=== PATIENT | female | born 1995 | race Caucasian/White ===

== ENCOUNTER → 2017-12-29 | Outpatient (CLI) | payer OTHER ==
[~2017-12-29] MED LIST: HYDR12.561 PO; METO-233 PO; POTA20TA85 PO
--- NOTE | 2017-12-29 16:16 | RADIOLOGY IMAGING REPORT ---
FACILITY: [facility] PATIENT NAME: Joy Hunt : 1995 MR: [id number] V: [id number] EXAM DATE: ORDERING PHYSICIAN: YOEL BERMEO TECHNOLOGIST: [place] [facility] [place] Patient: Joy Hunt : 1995 Visit/Account:[id number] Date of Sevice: 12/29/2017 CT ABDOMEN WITHOUT CONTRAST CLINICAL INFORMATION: Hypertension TECHNIQUE: Axial CT images were obtained through the abdomen without administration of IV contrast. Reformatted coronal and sagittal images were also obtained. COMPARISON: None available. FINDINGS: Lower lung plata: There is a 4 mm noncalcified subpleural nodule anterior aspect of the right middle lobe best seen on image seven of series 5 Evaluation of the solid organs of the abdomen is limited without IV contrast. Liver: No focal parenchymal abnormality of the liver. Biliary: Gallbladder appears unremarkable as well as the intra and extra hepatic biliary system. Pancreas: Normal appearance. Spleen: Normal appearance. Adrenal glands: Unremarkable. Kidneys / retroperitoneum: There is no demonstration of urolithiasis, hydronephrosis or hydroureter Bowel / peritoneum / mesenteries: The visualized small and large bowel appear unremarkable. Lymph node assessment: There are multiple enlarged retroperitoneal and mesenteric lymph nodes. A rep resentative aortocaval lymph node measures 1.4 x 1.1 x 1.9 cm. A telemarketing representative mesenteric lymph nod e in the right-sided abdomen measures 2.3 x 1 x 1.4 cm Vessels: No significant atherosclerotic calcification seen throughout a nonaneurysmal abdominal aorta and branches. Musculoskeletal / Body wall: There is a small umbilical hernia containing fat IMPRESSION: 1. There are multiple enlarged retroperitoneal and mesenteric lymph nodes as described above. Altho ugh these lymph nodes could be reactive, malignancy such as lymphoma should be excluded 4 mm noncalcified subpleural nodule anterior aspect of the right middle lobe. For nodules less than 6 mm in a low risk patient (minimal or absent smoking history, no history of malignancy), no routine f ollowup is recommended. In a high risk patient (smoking or malignancy history), optional 12 month fol lowup can be obtained. Report Dictated By: Patricia Delgado MD at 12/29/2017 3:53 PM Report E-Signed By: Patricia Delgado MD at 12/29/2017 4:12 PM WSN:[email or web address]
== END ==
LOC: CT 07:41
PROVIDERS: ATTEND Internal Medicine Cardiovascular Disease
DX: R59.0 Localized enlarged lymph nodes (principal); K42.9 Umbilical hernia without obstruction or gangrene; R91.1 Solitary pulmonary nodule
CPT/HCPCS: 74150

== ENCOUNTER → 2018-01-13 | Outpatient (CLI) | payer OTHER ==
[~2018-01-13] MED LIST changes: +IOPAMIDOL 76% 75 ML INFUS BTL 75 ML ONE; +Mirena; +NS 0.9% 20 ML SDV 20 ML ONE
--- NOTE | 2018-01-13 10:10 | RADIOLOGY IMAGING REPORT ---
FACILITY: [facility] [place] PATIENT NAME: Joy Hunt : 1995 MR: [id number] V: [id number] EXAM DATE: ORDERING PHYSICIAN: KATIE GENTILE TECHNOLOGIST: [facility] Patient: Joy Hunt : 1995 Visit/Account:[id number] Date of Sevice: 01/13/2018 CT neck with and without contrast Comparison: None Additional pertinent history: Swollen lymph nodes TECHNIQUE: Multiple axial images were obtained from the mid portion of the brain through the superio r mediastinum with IV contrast. Coronal and sagittal reformatted images were obtained off the axial source data. One of the following dose optimization techniques was utilized in the performance of t his exam: Automated exposure control; adjustment of the mA and/or kV according to the patient's size; or use of an iterative reconstruction technique. Specific details can be referenced in the [facility] y's radiology CT exam operational policy. CONTRAST: 75 mL of Isovue-370 FINDINGS: Visualized portions of the brain parenchyma:Negative Parotid glands/submandibular glands/thyroid: Negative Orbits: Negative Paranasal sinuses: Negative Parapharyngeal spaces: Negative Nasopharynx/oropharynx/hypopharynx: Negative Tonsillar pillars: Negative Oral tongue/tongue base: Negative True and false cords: Negative Lymph node assessment:Negative Surrounding soft tissues: Negative Vasculature: Negative Lung apices: Negative Osseous structures: Negative IMPRESSION: Normal CTA of the neck with and without contrast. Specifically no lymphadenopathy noted . Report Dictated By: Keith Mcguire MD at 01/13/2018 10:01 AM Report E-Signed By: Keith Mcguire MD at 01/13/2018 10:06 AM WSN:[id number]
--- NOTE | 2018-01-13 10:19 | RADIOLOGY IMAGING REPORT ---
FACILITY: [facility] PATIENT NAME: Joy Hunt : 1995 MR: [id number] V: [id number] EXAM DATE: ORDERING PHYSICIAN: KATIE GENTILE TECHNOLOGIST: Location: [facility] [place] Patient: Joy Hunt : 1995 Visit/Account:[id number] Date of Sevice: 01/13/2018 CHEST W W/O CONTRAST HISTORY: Swollen lymph nodes One of the following dose optimization techniques was utilized in the performance of this exam: Autom ated exposure control; adjustment of the mA and/or kV according to the patient's size; or use of an i terative reconstruction technique. Specific details can be referenced in the facility's radiology C T exam operational policy. Additional Pertinent history: none TECHNIQUE: Spiral scan was obtained through the chest before and during injection of nonionic iodin ated intravenous contrast. Contrast: 75 mL of IV Isovue-370. COMPARISON STUDIES: none. FINDINGS: Lungs / pleura: Lung plata are clear. No lung lesions. No effusions. No consolidations Mediastinum / angelina: No hilar mass lesions. Heart / pericardium: negative Vessels: negative Musculoskeletal / Body wall: negative Lymph node assessment: Normal appearing axillary lymph nodes. No mediastinal or hilar lymphadenopathy the pathologic nature. Lower neck: Thyroid glands normal. No abnormal supraclavicular lymphadenopathy Upper abdomen: Gallbladder is normal. Visualized liver, spleen, pancreas adrenal glands and kidneys a re normal. There are a few scattered normal appearing lymph nodes seen in the gastrohepatic ligament and in the celiac axis. There are shotty scattered periaortic pericaval lymph nodes identified larges t measuring approximately centimeter in size. IMPRESSION: 1. Negative CT scan of the chest for acute cardiopulmonary disease. No pathologic lymphadenopathy not ed. Report Dictated By: Mckay Billy MD at 01/13/2018 10:06 AM Report E-Signed By: Mckay Billy MD at 01/13/2018 10:13 AM WSN:[id number]
== END ==
LOC: CT 08:00
PROVIDERS: ATTEND Nurse Practitioner Family
DX: I88.0 Nonspecific mesenteric lymphadenitis (principal); B59 Pneumocystosis
CPT/HCPCS: 70492; 71270; J7050; Q9967

== ENCOUNTER 2018-02-26 09:00 | Outpatient (RCR) | payer OTHER ==
[2018-01-12 08:40] VITALS: BP 124/87
[2018-01-12 09:34] LABS: PLATELET COUNT, AUTOMATED 313 K/uL (150-450)
--- NOTE | 2018-01-12 09:37 | ONC Progress Note - NP.Halsey ---
Patient History Date of Service Jan 12, 2018 Reason For Visit/HPI Patient is a 22-year-old female with a history of hypertension since age 9. Negative workup for secondary causes has been completed. Patient follows with cardiology Dr.Mehdi Christie in [place]. Patient also has a history of endometriosis. She has been on hypertension medication since her teenage years. Patient reports having been seen in urgent care multiple times for lymphadenopathy in the neck at a young age and remembers a biopsy being recommended however symptoms resolved and a biopsy was never completed. Agent is seen today post CT scan of the abdomen completed on 12/29/2017. CT visualized all triple enlarged retroperitoneal and mesenteric lymph nodes. A business services sales representative aortocaval lymph node measures 1.4 x 1.1 x 1.9 cm. A business services sales representative mesenteric lymph node in the right side of the abdomen measures 2.3 x 1 x 1.4. Incidental finding on abdominal CT shows a 4 mm noncalcified subpleural nodule anterior aspect of the right middle lobe. Patient has not had a CT of the chest and neck with IV contrast. Today's discussion reviewed indication of lymphadenopathy. Patient has been at believe that she has a diagnosis of lymphoma. In review patient will have a CT-guided biopsy completed in [place] scheduled for this Friday to give us a confirmed diagnosis. Patient verbalized understanding. She is also scheduled to follow with Dr. Jf Jolly on of this week. In review of systems patient reports that she has had fever only with with an upper respiratory infection thought to be viral last week. She denies any recent symptoms. She has had weight gain and feels very tired and fatigued. She denies any night sweats or chills. No weight loss. She previously was on control but this was discontinued due to a skin reaction and weight gain. She denies any skin reaction today. Surgical history includes tonsil and adenoidectomy in 1999, right anterior cruciate ligament repair age 18, bilateral ear tubes and 96 through 1999, wisdom teeth extraction age 18. Problem List (1) Hypertension secondary to endocrine disorders (2) Endometriosis (3) Mesenteric lymphadenitis (4) Retroperitoneal lymphadenopathy (5) FH: diabetes mellitus (6) FH: kidney disease (7) FH: alcoholism (8) FH: glaucoma (9) FH: skin cancer (10) FH: dementia (11) FH: sleep apnea (12) FH: HTN (hypertension) (13) Family history of degenerative disc disease (14) Family history of endometriosis (15) Family history of GERD Medical History Family History: Degenerative disc disease MOTHER, Age:49 Endometriosis MOTHER, Age:49 FH: HTN (hypertension) MOTHER, Age:49 MATERNAL GRANDFATHER, , Age:78 FH: alcoholism Paternal Grandfather FH: dementia Maternal Grandmother FH: diabetes mellitus PATERNAL GRANDMOTHER, FH: glaucoma PATERNAL GRANDMOTHER, FH: kidney disease MOTHER, Age:49 FH: skin cancer MOTHER, Age:49 MATERNAL GRANDFATHER, , Age:78 FH: sleep apnea FATHER, Age:49 GERD MOTHER, Age:49 Psychosocial History Social History Patient is single, she is a college student studying in nutrition at the [employer] Occupational History Patient works in [employer] Alcohol History She denies abuse Recreational Drug History She denies use Smoking Status: Never Smoker Exposure to Second Hand Smoke?: Yes (g[place] in [place]Public exposure) Medications and Allergies Active Scripts Metoprolol Succinate (TOPROL XL) 50 Mg Tab.er.24h, 1 TAB PO QDAY, #90 TAB 4 Refills Prov:RAHEEL DANIELS MD 09/01/17 Hydrochlorothiazide (HYDROCHLOROTHIAZIDE) 12.5 Mg Tablet, 1 TAB PO QDAY, #90 TAB 4 Refills Prov:RAHEEL DANIELS MD 09/01/17 Reported Medications Potassium Chloride (KLOR-CON M20) 20 Meq Tab.er.prt, 20 MEQ PO PRN Y for CRAMPING 01/12/18 [Mirena] No Conflict Check, 52 MG DIRECTED 01/12/18 Discontinued Scripts Potassium Chloride (KLOR-CON M20) 20 Meq Tab.er.prt, 2 TAB PO QDAY, #180 TAB 4 Refills Prov:RAHEEL DANIELS MD 09/01/17 Allergies: Coded Allergies: No Known Drug Allergies (Unverified , 08/14/17) Review of System/Physical Exam Review of Systems All Systems Reviewed/Normal: Yes, Except as Noted Constitutional: Positive for Appetite/Weight Change (weight gain), Positive for Recent Infection, Denies Fever/Chills/Sweating Gastrointestinal: Diarrhea (reports bouts of diarrhea that coming go. No correlation with foods) Endocrine: Positive for Enlarged Lymph Nodes (prior history of bilateral neck lymphadenopathy. Denies any palpable lymph nodes today.) Hematologic: Positive for Fatigue (increased fatigue rated a 4 out of 10 today) Musculoskeletal: Positive for Other (patient is active walking several miles a day on campus.) Physical Exam Vital Signs Temperature: 97.2 Pulse: 83 BP Systolic: 124 BP Diastolic: 87 Respiratory Rate: 16 O2 SAT: 95 O2 Delivery: Height (inches) 64.50 Weight lb: Weight oz: Weight Kg (Erick): Pain: 0 ECOG Score: 0 General: Stable, Well Developed, Well Nourished, Not In Acute Distress HEENT: No Trauma, No Conjunctivitis, No Icterus, No Mucositis, No Oral Thrush Neck: Supple, No Thyromegaly Lungs: Clear to Auscultation Heart: Regular Rate, Regular Rhythm, No Gallops, No Murmurs Abdomen: Soft and Nontender, No Hepatosplenomegaly, No Masses, Tenderness ( mild tenderness with palpation on the right upper quadrant, no rebound tenderness) Extremities: No Cyanosis, No Clubbing, No Edema Lymphadenopathy: No Cervical, No Subclavicular, Axillary (tenderness with palpation in the right axillary with possible palpable lymph node in the upper deep quadrant), No Femoral Psychiatric: Mood appears normal, Affect appears normal Skin: No Skin Rashes, No Bruising, No Purpura Diagnostic Studies Diagnostic Studies Laboratory CBC, CMP, LDH and uric acid drawn today. Patient will have PTT and PT INR drawn in [place] prior CT guided biopsy. Assessment and Plan Assessment & Plan This is a 22-year-old female with a history of hypertension since 9 years old. She started on medication in her mid teens. Patient reports that she has had increased fatigue and weight gain. Cardiology ordered a CT of the abdomen for abnormal aldosterone and PRA levels. CT completed on 12/29/2017 shows multiple enlarged retroperitoneal and mesenteric lymph nodes. A business services sales representative aortocaval lymph node measures 1.4 x 1.1 x 1.9 cm. A business services sales representative mesenteric lymph node in the right side of the abdomen measures 2.3 x 1 x 1.4 cm. Incidental finding is a 4 mm noncalcified subpleural nodule anterior aspect of the right middle lobe. Patient has mild tenderness with deep palpation in the right upper abdomen and right axillary area. Possible palpable lymph node on exam today noted in right axillary is very deep. CT of the chest and neck will be completed prior follow-up with Dr. JOSEPH Jolly on of this week. Patient is currently scheduled for CT-guided biopsy in [place] for mesenteric lymph node. CBC, CMP, LDH and uric acid will be drawn today. Patient will need PT and PT/INR completed in [place] prior to CT biopsy scheduled for this Friday. In addition patient has requested a 2nd opinion and will follow with Dr. Roy on 01/21/2017. I personally spent a total of 35 minutes. Of that 35 minutes was counseling/ coordination of patient's care. See my note above for details. Copies to: YOEL BERMEO MD, NANCY J TIN CAN LABORER-BC, ONC Jan 12, 2018 09:36
[2018-01-15 08:37] VITALS: BP 135/86
--- NOTE | 2018-01-15 18:03 | ONCOLOGY FOLLOW UP NOTE ---
EVENT DATE: January 15, 2018 DIAGNOSES 1. Mesenteric and retroperitoneal lymphadenopathy. 2. Childhood hypertension. 3. Endometriosis. CHIEF COMPLAINT Patient is here today for followup of her mesenteric and retroperitoneal lymphadenopathy. ONCOLOGY/HEMATOLOGY HISTORY Patient is a 22-year-old female who was diagnosed with hypertension since age 9. Her workup was negative for secondary causes. Patient is followed by a driver medic in [place], [place]. She had also a history of endometriosis. She had a CT abdomen on December 29, 2017 which showed enlarged retroperitoneal and mesenteric lymph nodes. Aortocaval lymph node measures 1.9 cm. Another lymph node on the right side of the abdomen measured 2.3 cm. There was an incidental finding in the abdominal CT scan of 4 mm noncalcified subpleural nodule on the anterior aspect of the right middle lobe. CT chest and neck did not show any lymphadenopathy. Patient is scheduled for a CT-guided biopsy of the retroperitoneal lymph node on January 16, 2018. Patient denies any B symptoms, except for mild loss of appetite. PAST MEDICAL HISTORY 1. Childhood hypertension. 2. Endometriosis. PAST SURGICAL HISTORY 1. Right anterior cruciate ligament repair at age 18. 2. Tonsillectomy and adenoidectomy in 1999. 3. Bilateral ear tubes four times between [id number]. 4. [place] tooth extraction at the age 18. FAMILY HISTORY Mother had melanoma and basal cell carcinoma. Paternal great grandmother had head and neck cancer. Maternal grandfather had also melanoma. SOCIAL HISTORY Patient is single. She works at [employer] in [place] in the [employer] section. She is currently a full student. Denies any abuse of tobacco, alcohol or drugs, but she drinks occasionally. CURRENT MEDICATIONS 1. Hydrochlorothiazide 12.5 mg tablets daily. 2. Metoprolol 50 mg once daily. 3. Potassium chloride 20 mEq as needed. ALLERGIES No known drug allergies. REVIEW OF SYSTEMS CONSTITUTIONAL: She has loss of appetite. No fever, chills or sweating. No recent infection. HEENT: Ears: No tinnitus or hearing problem. Nose: No nasal discharge or epistaxis. Throat: No sore throat or mouth ulcers. Eyes: No diplopia or visual changes. RESPIRATORY: No shortness of breath. She has cough with expectoration from recovering from upper respiratory tract infection. CARDIOVASCULAR: No chest pain, orthopnea, or paroxysmal nocturnal dyspnea (PND) . No edema. No palpitations. GASTROINTESTINAL: No nausea or vomiting. She has occasional diarrhea. No change in bowel movements. No heartburn or swallowing difficulties. No abdominal pain. No jaundice. No hematemesis, melena or rectal bleeding. GENITOURINARY: No hematuria or dysuria. MUSCULOSKELETAL: She has pain in the lower back for the last for the last two months. NEUROLOGICAL: No tingling or numbness in the hands or feet. No headaches or convulsions. HEMATOLOGIC/LYMPHATIC: No bleeding or easy bruising. She is weak, tired and fatigued. PHYSICAL EXAMINATION GENERAL: Looks stable. Well-developed, well-nourished, and in no acute distress. VITAL SIGNS: Blood pressure 135/86, pulse 94 per minute, respirations 16 per minute, temperature 97.4, pulse ox 95% on room air. HEENT: Head: Atraumatic. No sinus tenderness to palpation. Eyes: No icterus or conjunctivitis. Mouth and throat: No oral thrush or mucositis. NECK: Supple. No cervical or supraclavicular lymphadenopathy. LUNGS: Clear to auscultation and percussion bilaterally. HEART: Regular rate and rhythm. No gallops, murmurs, clicks or rubs. ABDOMEN: Soft and lax. No tenderness. No hepatosplenomegaly. No masses. EXTREMITIES: No cyanosis, clubbing or edema. LYMPHATICS: No peripheral lymphadenopathy. NEUROLOGICAL: Conscious, alert and oriented times three. No focal motor or sensory deficits. PSYCHIATRIC: Mood and affect appear normal. SKIN: No skin rash, bruise or purpuric eruption. ASSESSMENT 1. Retroperitoneal and mesenteric lymphadenopathy. Could be benign in nature versus malignancy, especially lymphomas in her age group. Her CT chest and neck did not show any lymphadenopathy, but her CT abdomen and pelvis revealed retroperitoneal and mesenteric lymphadenopathy. Patient is scheduled on January 16, [address]-guided biopsy of the retroperitoneal lymph node. I will await the result of this lymph node. I had a long discussion with the patient and her family today regarding the possibility of sampling error and the possibility of needing full excisional biopsy if this is a lymphoma to make all the testing we need to decide about treatment. They are aware also, if this is a lymphoma the patient will need bone marrow aspiration biopsy to complete the staging workup. I am planning to see her next week after she will have her biopsy to discuss the results and further management. 2. Childhood hypertension, on treatment. 3. History of endometriosis. PLAN 1. Await the result of the CT-guided biopsy of the retroperitoneal lymph node. 2. Patient to return in one week for further evaluation and management. 3. Patient is to contact us for any new concern or complaints. BONYD
[2018-02-23 09:09] VITALS: BP 147/89
--- NOTE | 2018-02-23 14:25 | RADIOLOGY IMAGING REPORT ---
FAC[place]: [facility] [place]IENT NAME: Joy Hunt : 1995 MR: [id number] V: [id number] EXAM DATE: ORDERING PHYSICIAN: KATIE GENTILE TECHNOLOGIST: Location: [facility] Patient: Joy Hunt : 1995 Visit/Account:[id number] Date of Sevice: 02/23/2018 CT ABDOMEN PELVIS W & W/O CONTRAST HISTORY: Follow-up enlarged lymph nodes TECHNIQUE: Axial images acquired through the abdomen/pelvis both with and without IV contrast.. Carley nal and sagittal reformatting also performed. Dose Lowering Technique One of the following dose optimization techniques was utilized in the performance of this exam: Autom ated exposure control; adjustment of the mA and/or kV according to the patient's size; or use of an i terative reconstruction technique. Specific details can be referenced in the facility's radiology C T exam operational policy. CONTRAST: 75 mL Isovue-370 COMPARISON: December 29, 2017 FINDINGS: Visualized lung bases: Negative. Hepatobiliary: Negative. Spleen: Negative. Adrenals: Negative. Pancreas: Negative. Kidneys ureters and bladder: Negative. Genitalia: The uterus is canted towards the right. There is an IUD in place. The lateral arms of t he IUD may be embedded within the myometrium or possibly extending through the myometrium. This coul d be better evaluated sonographically GI: Negative. Vessels/spaces/nodes: There has been no significant interval change in the prominent portacaval and mesenteric adenopathy Bones/soft tissues: Small umbilical hernia containing fat Additional findings: None pertinent. IMPRESSION: There is been no stable interval change in the prominent retroperitoneal and aortocaval adenopathy. Although this lymph nodes may be reactive although possibility of lymphoma or other lymphoproliferati ve process are included in the differential diagnosis The uterus is canted towards the right. There is an IUD in place with the lateral arms of IUD possib ly embedded within the myometrium or extending through the myometrium. Further evaluation with ultra sound is recommended Report Dictated By: Patricia Delgado MD at 02/23/2018 2:00 PM Report E-Signed By: Patricia Delgado MD at 02/23/2018 2:21 PM WSN:[email or web address]
[~2018-02-26] VITALS: Ht 163.8 cm; Wt 96.9 kg
[~2018-02-26 09:00] MED LIST changes: -NS 0.9% 20 ML SDV 20 ML ONE
[2018-02-26 09:08] VITALS: BP 150/94
[2018-02-26] MEDS ORDERED: OMEP-125 PO (09:11)
--- NOTE | 2018-02-26 16:33 | ONCOLOGY FOLLOW UP NOTE ---
EVENT DATE: February 26, 2018 DIAGNOSES 1. Mesenteric and retroperitoneal lymphadenopathy. 2. Childhood hypertension. 3. Endometriosis. CHIEF COMPLAINT Patient is here today for followup of her mesenteric and retroperitoneal lymphadenopathy. ONCOLOGY/HEMATOLOGY HISTORY Patient is a 22-year-old female who was diagnosed with hypertension since age 9. Her workup was negative for secondary causes. Patient is followed by a towel inspector in [place], [place]. She had also a history of endometriosis. She had a CT abdomen on December 29, 2017 which showed enlarged retroperitoneal and mesenteric lymph nodes. Aortocaval lymph node measures 1.9 cm. Another lymph node on the right side of the abdomen measured 2.3 cm. There was an incidental finding in the abdominal CT scan of 4 mm noncalcified subpleural nodule on the anterior aspect of the right middle lobe. CT chest and neck did not show any lymphadenopathy. Patient is scheduled for a CT-guided biopsy of the retroperitoneal lymph node on January 16, 2018. Patient denies any B symptoms, except for mild loss of appetite. HISTORY OF PRESENT ILLNESS Patient is here today for followup of her mesenteric and retroperitoneal lymphadenopathy. She is complaining of occasional diarrhea due to stress. She has also some discomfort in her back. She felt that she has some right postauricular lymph node which is tender sometimes. She is weak, tired and fatigued. PAST MEDICAL HISTORY 1. Childhood hypertension. 2. Endometriosis. PAST SURGICAL HISTORY 1. Right anterior cruciate ligament repair at age 18. 2. Tonsillectomy and adenoidectomy in 1999. 3. Bilateral ear tubes four times between [id number]. 4. [place] tooth extraction at the age 18. FAMILY HISTORY Mother had melanoma and basal cell carcinoma. Paternal great grandmother had head and neck cancer. Maternal grandfather had also melanoma. SOCIAL HISTORY Patient is single. She works at [employer] in [place] in the [employer] section. She is currently a full student. Denies any abuse of tobacco, alcohol or drugs, but she drinks occasionally. CURRENT MEDICATIONS 1. Hydrochlorothiazide 12.5 mg tablets daily. 2. Metoprolol 50 mg once daily. 3. Potassium chloride 20 mEq as needed. ALLERGIES No known drug allergies. REVIEW OF SYSTEMS CONSTITUTIONAL: She has loss of appetite. No fever, chills or sweating. No recent infection. HEENT: Ears: No tinnitus or hearing problem. Nose: No nasal discharge or epistaxis. Throat: No sore throat or mouth ulcers. Eyes: No diplopia or visual changes. RESPIRATORY: No shortness of breath. She has cough with expectoration from recovering from upper respiratory tract infection. CARDIOVASCULAR: No chest pain, orthopnea, or paroxysmal nocturnal dyspnea (PND) . No edema. No palpitations. GASTROINTESTINAL: No nausea or vomiting. She has occasional diarrhea. No change in bowel movements. No heartburn or swallowing difficulties. No abdominal pain. No jaundice. No hematemesis, melena or rectal bleeding. GENITOURINARY: No hematuria or dysuria. MUSCULOSKELETAL: She has discomfort in her back. NEUROLOGICAL: No tingling or numbness in the hands or feet. No headaches or convulsions. No complaint. HEMATOLOGIC/LYMPHATIC: No bleeding or easy bruising. She is weak, tired and fatigued. She has possibly enlarged right postauricular lymph node. PHYSICAL EXAMINATION GENERAL: Looks stable. Well-developed, well-nourished, and in no acute distress. VITAL SIGNS: Blood pressure 150/94, pulse 113 per minute, respirations 16 per minute, temperature 97.6, pulse ox 94% on room air. HEENT: Head: Atraumatic. No sinus tenderness to palpation. Eyes: No icterus or conjunctivitis. Mouth and throat: No oral thrush or mucositis. NECK: Supple. No cervical or supraclavicular lymphadenopathy. There may be possible right postauricular lymph node, slightly tender to palpation, but the size is not significant. LUNGS: Clear to auscultation and percussion bilaterally. HEART: Regular rate and rhythm. No gallops, murmurs, clicks or rubs. ABDOMEN: Soft and lax. No tenderness. No hepatosplenomegaly. No masses. EXTREMITIES: No cyanosis, clubbing or edema. LYMPHATICS: No peripheral lymphadenopathy. NEUROLOGICAL: Conscious, alert and oriented times three. No focal motor or sensory deficits. PSYCHIATRIC: Mood and affect appear normal. SKIN: No skin rash, bruise or purpuric eruption. DIAGNOSTIC DATA CBC shows white count 9.1, hemoglobin 16.2, hematocrit 46.8, platelets 313,000. Chem panel is totally normal. CT abdomen and pelvis done on February 23, 2018 revealed stable prominent retroperitoneal and aortocaval adenopathy. The patient was referred for CT guided biopsy of one of the retroperitoneal lymph nodes, but the radiologist at [facility] does not think they are significant pathologically to do the biopsy. ASSESSMENT 1. Retroperitoneal and mesenteric lymphadenopathy. Could be reactive in nature. Patient was referred for CT guided biopsy of one of those lymph nodes, but the radiologist at [facility] thought those are not significant clinically to do the biopsy. Her repeat CT abdomen and pelvis did not show any change in the size of those lymph nodes. There may be query right postauricular lymph node tender to palpation. I am planning to continue followup. I will see her in four months with CBC, chem panel and repeat CT abdomen and pelvis. I advised the patient also to check the superficial lymphadenopathy in the neck, under the armpits and in the groin area, and if the patient will feel any swelling, to contact the office and we will see her at that time and decide about biopsy. So far it seems that she may have a benign cause for those slightly enlarged lymph nodes. 2. Hypertension on treatment. 3. History of endometriosis. PLAN 1. Continue followup. 2. Patient to return in four months with CBC, chem panel and CT abdomen and pelvis with IV and oral contrast. 3. Patient is to contact us for any new concerns or complaints. ALDAIR
== END 2018-03-20 08:44 | disposition home or self-care (01) ==
LOC: ONC 09:00
PROVIDERS: ATTEND Nurse Practitioner Family
DX: R59.0 Localized enlarged lymph nodes (principal); R91.8 Other nonspecific abnormal finding of lung field; R19.7 Diarrhea, unspecified; R53.83 Other fatigue; I10 Essential (primary) hypertension; Z97.5 Presence of (intrauterine) contraceptive device
CPT/HCPCS: 36415; 74177; 82565; 83615; 84550; 85025; 99212; Q9967; 82040; 82247; 82310; 82374; 82435; 82947; 84075; 84132; 84155; 84295; 84450; 84460; 84520

== ENCOUNTER → 2018-03-04 | Outpatient (CLI) | payer OTHER ==
[~2018-03-04] MED LIST changes: -IOPAMIDOL 76% 75 ML INFUS BTL 75 ML ONE; +OMEP-125 PO
--- NOTE | 2018-03-04 17:12 | RADIOLOGY IMAGING REPORT ---
FACILITY: [facility] PATIENT NAME: Joy Hunt : 1995 MR: [id number] V: [id number] EXAM DATE: ORDERING PHYSICIAN: RAHEEL DANIELS TECHNOLOGIST: Location: [facility] [place] Patient: Joy Hunt : 1995 Visit/Account:[id number] Date of Sevice: 03/04/2018 EXAMINATION: Ultrasound pelvis transabdominal and transvaginal with Doppler evaluation. HISTORY: Abdominal pain, pelvic pain for one month. LMP not recorded. COMPARISON: CT abdomen and pelvis from 02/23/2018. FINDINGS: Transabdominal: Uterus: Negative. Ovaries: Not visualized transabdominally. Urinary bladder: Negative. Transvaginal: Uterus: Slightly retroverted; 5.2 cm length x 3.3 cm transverse x 2.4 cm AP. Myometrium: Negative. Endometrium: 5 mm in greatest double thickness. Homogeneous without focal lesion. Well-positioned I UD. Cervix: Negative. Ovaries: Right ovary 2.6 x 1.7 x 2.2 cm, left ovary 2.5 x 1.3 x 2.2 cm. Blood flow is documented in each ovary by Doppler ultrasound. Normal Doppler arterial and venous wav eforms to both ovaries. Adnexa: Negative. Free pelvic fluid: None. IMPRESSION: 1. Well-positioned IUD. 2. Normal pelvic ultrasound. Report Dictated By: Jessica Acosta MD at 03/04/2018 5:06 PM Report E-Signed By: Jessica Acosta MD at 03/04/2018 5:09 PM WSN:[id number]
== END ==
LOC: US 01:06
PROVIDERS: ATTEND Internal Medicine
DX: Z97.5 Presence of (intrauterine) contraceptive device (principal)
CPT/HCPCS: 76856

== ENCOUNTER → 2018-05-06 | Outpatient (CLI) | payer OTHER ==
[~2018-05-06] MED LIST changes: +IOPAMIDOL 76% 75 ML INFUS BTL 0 ML ONE
--- NOTE | 2018-05-06 14:31 | RADIOLOGY IMAGING REPORT ---
FACILITY: [facility] PATIENT NAME: Joy Hunt : 1995 MR: [id number] V: [id number] EXAM DATE: ORDERING PHYSICIAN: GENO OLIVAREZ TECHNOLOGIST: Location: [place] [facility] [place] Patient: Joy Hunt : 1995 Visit/Account:[id number] Date of Sevice: 05/06/2018 EXAMINATION: CT neck without IV contrast HISTORY: Evaluate for malignancy TECHNIQUE: CT was obtained through the neck without contrast. Sagittal and coronal reformatted im ages were generated. One of the following dose optimization techniques was utilized in the performance of this exam: autom ated exposure control; adjustment of the mA and/or kV according to patient size; or use of iterative reconstruction technique. Specific details can be referenced in the facility's radiology CT exam ope rational policy. COMPARISON: January 13, 2018 FINDINGS: Parotid/submandibular and thyroid glands: Normal. Pharyngeal and retropharyngeal soft tissues: Normal. Oral cavity and umbrella repairer space soft tissues: Normal. Laryngeal soft tissues: Normal. Lymph nodes: No enlarged or abnormal appearing neck lymph nodes. Vessels: Negative. Visualized orbits / brain: Negative. Upper chest: Normal. Bones/sinuses/mastoid air cells: Normal. IMPRESSION: Normal neck CT. No neck mass or adenopathy. Report Dictated By: Asad Iniguez MD at 05/06/2018 2:23 PM Report E-Signed By: Asad Iniguez MD at 05/06/2018 2:27 PM WSN:[email or web address]
--- NOTE | 2018-05-06 14:32 | RADIOLOGY IMAGING REPORT ---
FACILITY: [facility] PATIENT NAME: oJy Hunt : 1995 MR: [id number] V: [id number] EXAM DATE: ORDERING PHYSICIAN: GENO OLIVAREZ TECHNOLOGIST: Location: [facility] [place] Patient: Joy Hunt : 1995 Visit/Account:[id number] Date of Sevice: 05/06/2018 CHEST/AB/PELV W/O CONTRAST COMPARISON: February 23, 2018 CT abdomen and pelvis with and without contrast: Noncontrast abdomen CT Fe bru2017, CT chest with and without contrast January 13, 2018 HISTORY: Enlarged lymph nodes and nonspecific lymphadenitis.. TECHNIQUE: Axial CT of the chest, abdomen and pelvis without intravenous contrast. Coronal and sagi ttal reformats. One of the following dose optimization techniques was utilized in the performance of this exam: automated exposure control; adjustment of the mA and/or kV according to patient size; or use of iterative reconstruction technique. Specific details can be referenced in the facility's [facility] CT exam operational policy. CONTRAST: None CT CHEST FINDINGS: CARDIAC: Unremarkable. MEDIASTINUM/ANGELINA: Upper normal size residual thymus in the anterior mediastinum. Nonenlarged lymph n odes. No hilar adenopathy with assessment limited by noncontrast technique. VASCULATURE: Unremarkable. CHEST WALL: No significantly enlarged lymph nodes. Prominent axillary nodes bilaterally with benign morphologies including fatty replaced angelina. LUNGS/PLEURA: No masses or pleural effusion. There are a few scattered pulmonary nodules which are p robably incidental/benign and these are stable from December. There is a 2 mm right upper lobe nodule image 132, pleural-based right middle lobe nodule anteriorly measuring 3 mm image 166, 3 mm pleural- based right lung base nodule image 221, 2-3 mm pleural-based nodules posteriorly in the left upper lo be largest on image 63, and other small nodules. BONES: Unremarkable. No significant lesion or fracture. CT ABDOMEN AND PELVIS FINDINGS: LIVER: Unremarkable. BILIARY: Unremarkable gallbladder. No intra-or extrahepatic bile duct dilatat ion. SPLEEN: Unremarkable. Normal size. Homogeneous density. PANCREAS: Unremarkable. No appreciable mass. No evidence of acute pancreatitis. ADRENALS: Unremarkable. KIDNEYS: Unremarkable. No hydronephrosis or appreciable calculus. No significant masses. GI/MESENTERY: Unremarkable. No visible mass, obstruction, or bowel wall thickening. No free fluid. VASCULAR: Unremarkable. LYMPH NODES: Prominent, just under 1 cm short axis diameter aortocaval and retroperitoneal lymph nod es in the abdomen, stable from December. No new adenopathy. There is no pelvic adenopathy. BLADDER: Unremarkable. No visible focal wall thickening, appreciable lesion, or calculus. PELVIC ORGANS: Uterine IUD. Unremarkable right ovary. Left ovary is slightly larger than previous bu t still upper normal size at about 2.4 cm, probably due to a cyst or follicle. BONES: Unremarkable.No acute-appearing fracture or suspicious osseous lesion. OTHER: Negative. IMPRESSION: 1. Scattered pulmonary micronodules, probably benign, and typically not requiring follow-up in a pat ient of this age, stable from December 2017. 2. Prominent retroperitoneal lymph nodes in the abdomen are stable from December. No new adenopathy in the chest, abdomen or pelvis. Report Dictated By: Oneil Fan at 05/06/2018 1:59 PM Report E-Signed By: Oneil Fan at 05/06/2018 2:28 PM WSN:[id number]
== END ==
LOC: CT 01:38
PROVIDERS: ATTEND Internal Medicine Hematology
DX: R91.8 Other nonspecific abnormal finding of lung field (principal); R59.0 Localized enlarged lymph nodes; Z97.5 Presence of (intrauterine) contraceptive device
CPT/HCPCS: 70490; 71250; 71260; 74176; 74177; Q9967

== ENCOUNTER 2018-07-02 14:55 | Outpatient (RCR) | payer OTHER ==
[2018-06-30 16:10] LABS: PLATELET COUNT, AUTOMATED 252 K/uL (150-450)
[2018-06-30 16:33] VITALS: BP 145/90
[~2018-07-02 14:55] MED LIST changes: -IOPAMIDOL 76% 75 ML INFUS BTL 0 ML ONE
[2018-07-02 15:04] VITALS: BP 125/87
--- NOTE | 2018-07-02 16:46 | ONCOLOGY FOLLOW UP NOTE ---
EVENT DATE: July 02, 2018 DIAGNOSES 1. Mesenteric and retroperitoneal lymphadenopathy. 2. Childhood hypertension. 3. Endometriosis. CHIEF COMPLAINT Patient is here today for followup of her mesenteric and retroperitoneal lymphadenopathy. ONCOLOGY/HEMATOLOGY HISTORY Patient is a 23-year-old female who was diagnosed with hypertension since age 9. Her workup was negative for secondary causes. Patient is followed by a acid plant helper in [place], [place]. She had also a history of endometriosis. She had a CT abdomen on December 29, 2017 which showed enlarged retroperitoneal and mesenteric lymph nodes. Aortocaval lymph node measures 1.9 cm. Another lymph node on the right side of the abdomen measured 2.3 cm. There was an incidental finding in the abdominal CT scan of 4 mm noncalcified subpleural nodule on the anterior aspect of the right middle lobe. CT chest and neck did not show any lymphadenopathy. Patient is scheduled for a CT-guided biopsy of the retroperitoneal lymph node on January 16, 2018. Patient denies any B symptoms, except for mild loss of appetite. HISTORY OF PRESENT ILLNESS Patient is here today for followup of her mesenteric and retroperitoneal lymphadenopathy. She is complaining of left-sided stabbing pain in the chest and she has some lymph nodes in the left jugulodigastric area. PAST MEDICAL HISTORY 1. Childhood hypertension. 2. Endometriosis. PAST SURGICAL HISTORY 1. Right anterior cruciate ligament repair at age 18. 2. Tonsillectomy and adenoidectomy in 1999. 3. Bilateral ear tubes four times between [id number]. 4. [place] tooth extraction at the age 18. FAMILY HISTORY Mother had melanoma and basal cell carcinoma. Paternal great grandmother had head and neck cancer. Maternal grandfather had also melanoma. SOCIAL HISTORY Patient is single. She works at [employer] in the [employer] section. She is currently a full student. Denies any abuse of tobacco, alcohol or drugs, but she drinks occasionally. CURRENT MEDICATIONS 1. Hydrochlorothiazide 12.5 mg tablets daily. 2. Metoprolol 50 mg once daily. 3. Potassium chloride 20 mEq as needed. ALLERGIES No known drug allergies. REVIEW OF SYSTEMS CONSTITUTIONAL: She has loss of appetite. No fever, chills or sweating. No recent infection. HEENT: Ears: No tinnitus or hearing problem. Nose: No nasal discharge or epistaxis. Throat: No sore throat or mouth ulcers. Eyes: No diplopia or visual changes. RESPIRATORY: No shortness of breath. She has cough with expectoration from recovering from upper respiratory tract infection. CARDIOVASCULAR: She has stabbing pain in the left side of the chest laterally. No orthopnea, or paroxysmal nocturnal dyspnea (PND). No edema. No palpitations. GASTROINTESTINAL: No nausea or vomiting. She has occasional diarrhea. No change in bowel movements. No heartburn or swallowing difficulties. No abdominal pain. No jaundice. No hematemesis, melena or rectal bleeding. GENITOURINARY: No hematuria or dysuria. MUSCULOSKELETAL: She has discomfort in her back. NEUROLOGICAL: No tingling or numbness in the hands or feet. No headaches or convulsions. No complaint. HEMATOLOGIC/LYMPHATIC: No bleeding or easy bruising. She is weak, tired and fatigued. She has possibly enlarged right postauricular lymph node. PHYSICAL EXAMINATION GENERAL: Looks stable. Well-developed, well-nourished, and in no acute distress. VITAL SIGNS: Blood pressure 125/87, pulse 94 per minute, respirations 16 per minute, temperature 98.1, pulse ox 95% on room air. HEENT: Head: Atraumatic. No sinus tenderness to palpation. Eyes: No icterus or conjunctivitis. Mouth and throat: No oral thrush or mucositis. NECK: Supple. There are very tiny lymph nodes at the right and left jugulodigastric areas, less than 0.5 cm in size, firm and rubbery in consistency. LUNGS: Clear to auscultation and percussion bilaterally. HEART: Regular rate and rhythm. No gallops, murmurs, clicks or rubs. ABDOMEN: Soft and lax. No tenderness. No hepatosplenomegaly. No masses. EXTREMITIES: No cyanosis, clubbing or edema. LYMPHATICS: No peripheral lymphadenopathy. NEUROLOGICAL: Conscious, alert and oriented times three. No focal motor or sensory deficits. PSYCHIATRIC: Mood and affect appear normal. SKIN: No skin rash, bruise or purpuric eruption. DIAGNOSTIC DATA CT chest, abdomen and pelvis and neck done in April 2018 did not show any increase in the size of the mesenteric and retroperitoneal lymph nodes. There are some tiny micro-pulmonary nodules which are stable in size. CBC showed a white count 9.6, hemoglobin 15.7, hematocrit 44.7, platelets 252,000. Chemistry panel totally normal except sodium 136, carbon dioxide 20. Other parameters are normal. ASSESSMENT 1. Retroperitoneal and mesenteric lymphadenopathy, most probably active in nature. Patient was referred for CT-guided biopsy of one of those retroperitoneal lymph nodes, but there was no lymph node significant for biopsy. Repeat CT chest, abdomen, pelvis and neck did not show any increase in the size of those lymph nodes. There was a clearly post auricular lymph nodes tender to palpation on the right side. There is another very tiny lymph node in the left jugulodigastric area, but too small for pathologic diagnosis. I am planning to see her again in four months with CBC, chem panel and CT chest, abdomen, pelvis and neck for further evaluation of those lymph nodes. Her CT chest done in April 2018 did reveal some pulmonary micro nodules which are stable in size. Will continue to monitor them with her next CT scan. 2. Hypertension on treatment. 3. History of endometriosis. PLAN 1. Continue followup. 2. Patient to return in four months with CBC, chem panel, CT chest, abdomen, pelvis and neck. 3. Patient is to contact us for any new concern or complaints. ALDAIR
== END 2018-07-24 11:08 | disposition home or self-care (01) ==
LOC: ONC 14:55
PROVIDERS: ATTEND Internal Medicine Hematology
DX: I88.0 Nonspecific mesenteric lymphadenitis (principal); I10 Essential (primary) hypertension; Z87.42 Personal history of other diseases of the female genital tract
CPT/HCPCS: 36415; 82040; 82247; 82310; 82374; 82435; 82565; 82947; 84075; 84132; 84155; 84295; 84450; 84460; 84520; 85025; 99212

== ENCOUNTER 2018-11-13 14:00 | Outpatient (RCR) | payer OTHER ==
--- NOTE | 2018-08-05 11:46 | NUR ---
Called and left patient a message to contact our office. She needs to be scheduled for CT scans and follow up in October [address] Escobar.
[2018-11-05 08:40] VITALS: BP 122/81
[2018-11-05 08:44] LABS: PLATELET COUNT, AUTOMATED 253 K/uL (150-450)
--- NOTE | 2018-11-05 12:43 | RADIOLOGY IMAGING REPORT ---
FACILITY: [facility] PATIENT NAME: Joy Hunt : 1995 MR: [id number] V: [id number] EXAM DATE: ORDERING PHYSICIAN: GENO OLIVAREZ TECHNOLOGIST: [place] [facility] [place]: Joy Hunt : 1995 Visit/Account:[id number] Date of Sevice: 11/05/2018 CHEST/AB/PELV W/WO CONTRAST HISTORY: Follow-up enlarged lymph nodes ADDITIONAL HISTORY: None. TECHNIQUE: Pre and post administration of IV contrast axial images acquired through the chest abdome n and pelvis during the portal venous phase. Coronal and sagittal reformatting was also performed.Do se Lowering Technique One of the following dose optimization techniques was utilized in the performance of this exam: Autom ated exposure control; adjustment of the mA and/or kV according to the patient's size; or use of an i terative reconstruction technique. Specific details can be referenced in the facility's radiology C T exam operational policy. CONTRAST: 75 mL Isovue-370 COMPARISON: May 06, 2018 FINDINGS: CHEST: Lungs/Pleura: The previously noted 2 mm noncalcified nodule inferior right upper lobe appears stable best seen on image 149 of series 8 3 mm pleural-based nodule anterior right middle lobe also appears stable best seen on image 181 Previously noted 2-3 mm pleural-based right lower lobe nodule also appears stable best seen on image 249 Previously noted 2 to 3 mm pleural-based nodules posterior aspect left upper lobe have remained stabl e best seen on image 89. Other tiny scattered nodules also have remained stable. No new pulmonary nodules are seen. No evide nce of pleural effusions Mediastinum/lymph nodes: Residual thymus in the anterior mediastinum appears stable no pathologic-ap pearing hilar or mediastinal adenopathy or axillary adenopathy Heart/vessels: Negative. Bones/soft tissues: Gentle levoconvex scoliosis of the thoracic spine ABDOMEN AND PELVIS: Hepatobiliary: Negative. Spleen: Negative. Pancreas: Negative. Adrenals: Negative. Kidneys ureters and bladder : Kidneys appear unremarkable. Bladder is moderately distended Genitalia: IUD is noted within the uterus GI: Negative. Vessels/spaces/nodes: Previously noted just under 1 cm short axis diameter aortocaval and retroperit mukherjee lymph nodes remain stable. No new adenopathy is appreciated Bones/soft tissues: Negative. Additional findings: None pertinent. IMPRESSION: Previously noted micropulmonary nodules have remained stable and are of doubtful significance Residual thymus in the anterior mediastinum has remained stable Aortocaval retroperitoneal lymph nodes have remained stable. Report Dictated By: Patricia Delgado MD at 11/05/2018 10:51 AM Report E-Signed By: Patricia Delgado MD at 11/05/2018 12:40 PM WSN:[id number]
--- NOTE | 2018-11-05 14:13 | RADIOLOGY IMAGING REPORT ---
FACILITY: [facility] PATIENT NAME: oJy Hunt : 1995 MR: [id number] V: [id number] EXAM DATE: ORDERING PHYSICIAN: GENO OLIVAREZ TECHNOLOGIST: Location: [facility] [place] Patient: Joy Hunt : 1995 Visit/Account:[id number] Date of Sevice: 11/05/2018 EXAMINATION: CT neck without IV contrast CT neck with IV contrast HISTORY: Enlarged lymph nodes. TECHNIQUE: Axial CT of the neck without and with IV contrast. Sagittal and coronal reformats. One of the following dose optimization techniques was utilized in the performance of this exam: Autom ated exposure control; adjustment of the mA and/or kV according to the patient's size; or use of an i terative reconstruction technique. Specific details can be referenced in the facility's radiology C T exam operational policy. CONTRAST: 75 mL of IV Isovue-370 COMPARISON: Soft tissue neck CT without contrast dated 05/06/2018. Soft tissue neck CT with contrast dated 01/13/2018. FINDINGS: Masses/lesions: None. Airway: Negative. Lymph nodes: Negative. Vessels: Negative. Musculoskeletal / Body wall: Reversal of the normal cervical lordosis. Visualized orbits / brain / paranasal sinuses: Negative. Upper chest: Negative. IMPRESSION: 1. Reversal of the normal cervical lordosis. This may be positional or secondary to muscle spasm. 2. Otherwise normal soft tissue neck CT without and with IV contrast. Report Dictated By: Rashad Celeste MD at 11/05/2018 2:02 PM Report E-Signed By: Rashad Celeste MD at 11/05/2018 2:08 PM WSN:[email or web address]
[~2018-11-13 14:00] MED LIST changes: +IOPAMIDOL 76% 50 ML INFUS BTL 100 ML ONE
[2018-11-13 14:07] VITALS: BP 131/90
--- NOTE | 2018-11-14 10:22 | [facility] ONCOLOGY NOTE ---
EVENT DATE: November 13, 2018 DIAGNOSES 1. Mesenteric and retroperitoneal lymphadenopathy. 2. Childhood hypertension. 3. Endometriosis. CHIEF COMPLAINT Patient is here today for followup of her mesenteric and retroperitoneal lymphadenopathy. ONCOLOGY/HEMATOLOGY HISTORY Patient is a 23-year-old female who was diagnosed with hypertension since age 9. Her workup was negative for secondary causes. Patient is followed by a elephant tamer in [place], [place]. She had also a history of endometriosis. She had a CT abdomen on December 29, 2017 which showed enlarged retroperitoneal and mesenteric lymph nodes. Aortocaval lymph node measures 1.9 cm. Another lymph node on the right side of the abdomen measured 2.3 cm. There was an incidental finding in the abdominal CT scan of 4 mm noncalcified subpleural nodule on the anterior aspect of the right middle lobe. CT chest and neck did not show any lymphadenopathy. Patient is scheduled for a CT-guided biopsy of the retroperitoneal lymph node on January 16, 2018. Patient denies any B symptoms, except for mild loss of appetite. HISTORY OF PRESENT ILLNESS Patient is here today for followup of her mesenteric and retroperitoneal lymphadenopathy. She is doing fine currently. She is complaining of occasional cough and itchy hands and feet but other than that she is doing very well. PAST MEDICAL HISTORY 1. Childhood hypertension. 2. Endometriosis. PAST SURGICAL HISTORY 1. Right anterior cruciate ligament repair at age 18. 2. Tonsillectomy and adenoidectomy in 1999. 3. Bilateral ear tubes four times between [id number]. 4. [place] tooth extraction at the age 18. FAMILY HISTORY Mother had melanoma and basal cell carcinoma. Paternal great grandmother had head and neck cancer. Maternal grandfather had also melanoma. SOCIAL HISTORY Patient is single. She works at [employer] in [place] in the [place] section. She is currently a full student. Denies any abuse of tobacco, alcohol or drugs, but she drinks occasionally. CURRENT MEDICATIONS 1. Hydrochlorothiazide 12.5 mg tablets daily. 2. Metoprolol 50 mg once daily. 3. Potassium chloride 20 mEq as needed. ALLERGIES No known drug allergies. REVIEW OF SYSTEMS CONSTITUTIONAL: She has loss of appetite. No fever, chills or sweating. No recent infection. HEENT: Ears: No tinnitus or hearing problem. Nose: No nasal discharge or epistaxis. Throat: No sore throat or mouth ulcers. Eyes: No diplopia or visual changes. RESPIRATORY: She has occasional cough. CARDIOVASCULAR: She has stabbing pain in the left side of the chest laterally. No orthopnea, or paroxysmal nocturnal dyspnea (PND). No edema. No palpitations. GASTROINTESTINAL: No nausea or vomiting. She has occasional diarrhea. No change in bowel movements. No heartburn or swallowing difficulties. No abdominal pain. No jaundice. No hematemesis, melena or rectal bleeding. GENITOURINARY: No hematuria or dysuria. MUSCULOSKELETAL: She has discomfort in her back. NEUROLOGICAL: No tingling or numbness in the hands or feet. No headaches or convulsions. No complaint. HEMATOLOGIC/LYMPHATIC: No bleeding or easy bruising. She is weak, tired and fatigued. She has possibly enlarged right postauricular lymph node. SKIN: Itchy hands and feet. PHYSICAL EXAMINATION GENERAL: Looks stable. Well-developed, well-nourished, and in no acute distress. VITAL SIGNS: Blood pressure 131/90, pulse 106 per minute, respirations 16 per minute, temperature 97, pulse ox 98% on room air. HEENT: Head: Atraumatic. No sinus tenderness to palpation. Eyes: No icterus or conjunctivitis. Mouth and throat: No oral thrush or mucositis. NECK: Supple. There are very tiny lymph nodes at the right and left jugulodigastric areas, less than 0.5 cm in size, firm and rubbery in consistency. LUNGS: Clear to auscultation and percussion bilaterally. HEART: Regular rate and rhythm. No gallops, murmurs, clicks or rubs. ABDOMEN: Soft and lax. No tenderness. No hepatosplenomegaly. No masses. EXTREMITIES: No cyanosis, clubbing or edema. LYMPHATICS: No peripheral lymphadenopathy. NEUROLOGICAL: Conscious, alert and oriented times three. No focal motor or sensory deficits. PSYCHIATRIC: Mood and affect appear normal. SKIN: No skin rash, bruise or purpuric eruption. DIAGNOSTIC DATA CBC showed white count 8.8, hemoglobin 16, hematocrit 47.1, platelets 253,000. Chem panel was totally normal. CT chest, abdomen and pelvis done on November 05, 2018 showed stable aortocaval retroperitoneal lymph node, micropulmonary nodules and residual thymus in the anterior mediastinum. ASSESSMENT 1. Retroperitoneal and mesenteric lymphadenopathy, most probably reactive in nature. Patient was referred for CT-guided biopsy of one of those retroperitoneal lymph nodes but there was no lymph node significant for biopsy. Repeat CT chest, abdomen, pelvis and neck did not show any increase in the size of those lymph nodes. Repeat CT chest, abdomen and pelvis done on November 05, 2018 revealed a stable aortocaval peritoneal lymph node, micropulmonary nodules and residual thymus in the anterior mediastinum. I am planning to repeat her scans again in six months from now to assure the stability of those abnormalities. I explained that to the patient and she is agreeable to the plan of management. I will see her in six months from now with CBC, chem panel, CT chest abdomen and pelvis with IV and oral contrast. 2. Hypertension, on treatment. 3. History of endometriosis. PLAN 1. Continue followup. 2. Patient to return in six months with CBC, chem panel, CT chest, abdomen, pelvis and 3. Patient is to contact us for any new concern or complaints. BONYD
== END 2018-12-28 12:46 | disposition home or self-care (01) ==
LOC: ONC 14:00
PROVIDERS: ATTEND Internal Medicine Hematology
DX: I88.0 Nonspecific mesenteric lymphadenitis (principal); I10 Essential (primary) hypertension; Z87.42 Personal history of other diseases of the female genital tract
CPT/HCPCS: 70492; 71270; 74178; 85025; 99212; Q9967; 82040; 82247; 82310; 82374; 82435; 82565; 82947; 84075; 84132; 84155; 84295; 84450; 84460; 84520

== ENCOUNTER → 2019-01-11 | Outpatient (CLI) | payer OTHER ==
[~2019-01-11] MED LIST changes: -IOPAMIDOL 76% 50 ML INFUS BTL 100 ML ONE
--- NOTE | 2019-01-11 13:30 | RADIOLOGY IMAGING REPORT ---
FACILITY: [facility] [place] PATIENT NAME: Joy Hunt : 1995 MR: [id number] V: [id number] EXAM DATE: ORDERING PHYSICIAN: RAHEEL DANIELS TECHNOLOGIST: Location: [facility] [place] Patient: Joy Hunt : 1995 Visit/Account:[id number] Date of Sevice: 01/11/2019 US SOFT TISSUE NON-SPECIFIC Indication: Left-sided chest wall pain, with lump. Comparison: None. Findings: Images over the anterior left chest of the patient's area of concern demonstrate normal cut aneous and subcutaneous tissue. There is no evidence of lipoma mass or hernia. IMPRESSION: Normal ultrasound images of the patient's area of concern, left chest wall. Report Dictated By: Kali Le at 01/11/2019 1:21 PM Report E-Signed By: Kali Le at 01/11/2019 1:22 PM WSN:[email or web address]
== END ==
LOC: US 02:14
PROVIDERS: ATTEND Internal Medicine
DX: R07.89 Other chest pain (principal)
CPT/HCPCS: 76999

== ENCOUNTER 2019-03-17 15:28 | Outpatient (RCR) | payer OTHER ==
[~2019-03-17 15:28] MED LIST changes: -OMEP-125 PO; +OMEP-126 PO
[2019-03-17 16:27] LABS: PLATELET COUNT, AUTOMATED 280 K/uL (150-450)
--- NOTE | 2019-03-17 17:57 | ONCOLOGY FOLLOW UP NOTE ---
EVENT DATE: March 17, 2019 DIAGNOSES 1. Mesenteric and retroperitoneal lymphadenopathy. 2. Childhood hypertension. 3. Endometriosis. CHIEF COMPLAINT Patient is here today for followup of her mesenteric and retroperitoneal lymphadenopathy, with complaints of visible and palpable left abdominal mass. ONCOLOGY/HEMATOLOGY HISTORY Patient is a 23-year-old female who was diagnosed with hypertension since age 9. Her workup was negative for secondary causes. Patient is followed by a web offset press feeder in [place], [place]. She had also a history of endometriosis. She had a CT abdomen on December 29, 2017, which showed enlarged retroperitoneal and mesenteric lymph nodes. Aortocaval lymph node measures 1.9 cm. Another lymph node on the right side of the abdomen measured 2.3 cm. There was an incidental finding in the abdominal CT scan of a 4 mm noncalcified subpleural nodule on the anterior aspect of the right middle lobe. CT chest and neck did not show any lymphadenopathy. She was initially scheduled for CT-guided biopsy of the retroperitoneal lymph node on 01/16/18; however, at that time, there was no lymph node significant in size for biopsy. Plan at that time was to continue to monitor. She has continued to deny any B symptoms, to include no night sweats, fevers, or appetite or weight changes. She saw her PCP, Dr. Randhawa, on 01/07/19 with complaints of ongoing left anterior chest wall/left upper abdominal swelling. Soft tissue ultrasound was done on 01/11/19, which was negative. HISTORY OF PRESENT ILLNESS Joy is here today for followup regarding her mesenteric and retroperitoneal lymphadenopathy. She believes this has been slowly worsening as she states that she now has a palpable left upper quadrant anterior mass. She recently saw PCP in mid December for this. She is accompanied in the office today by her mother. Other than the swelling, she reports feeling well with the exception of some fatigue. She has not had any fevers or night sweats, but does state that she "tends to feel warmer." She has been exercising recently with cardiovascular exercise as well as light weightlifting. She believes that she has had some chest pain/ chest wall pain for the last couple of months, most noticeable in her pectoral muscles and her bilateral axillae. She is not sure if she has swollen lymph nodes in the axilla, or if this is, again, muscular. She reports that her appetite is excellent. She states that her weight has been stable. She has a history of endometriosis and tells me that recently this has begun to flare. Occasionally, she has some right lower quadrant pain which she believes may be related to right ovarian pain secondary from possibly right ovarian cyst; she is unsure. Her menses have been stable considering endometriosis. She occasionally has some breakthrough spotting, but not much. She occasionally has a heavy period and other times reports short menses. This is all fairly stable for her. The area of concern to the left upper abdomen responds well to dkas-pio-innsigh ibuprofen. She tells me she that has a tattoo over the area, and the tattoo was there prior to the swelling. She does not believe that this is related to the tattoo or any infection related to the tattoo. PAST MEDICAL HISTORY 1. Childhood hypertension. 2. Endometriosis. PAST SURGICAL HISTORY 1. Right anterior cruciate ligament repair at age 18. 2. Tonsillectomy and adenoidectomy in 1999. 3. Bilateral ear tubes four times between 1995 and 1999. 4. [place] tooth extraction at the age 18. FAMILY HISTORY Mother had melanoma and basal cell carcinoma. Paternal great-grandmother had head and neck cancer. Maternal grandfather had also melanoma. SOCIAL HISTORY Patient is single. 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 Denies any abuse of tobacco, alcohol, or drugs, but she drinks occasionally. CURRENT MEDICATIONS 1. Hydrochlorothiazide 12.5 mg tablets daily. 2. Metoprolol 50 mg once daily. 3. Potassium chloride 20 mEq as needed. ALLERGIES No known drug allergies. REVIEW OF SYSTEMS CONSTITUTIONAL: Patient denies any recent fevers, chills, or night sweats. No recent infections. She reports good appetite and stable weight. HEENT: No vision changes. No hearing issues. No abnormal nasal discharge. No dysphagia or odynophagia. She reports occasionally feeling some tenderness possibly related to a lymph node to the right ear. RESPIRATORY: No cough, sputum production, or pleuritic chest pain. No shortness of breath. CARDIOVASCULAR: She reports some chest pain ongoing now for two months. This is mostly confined to the left lateral chest wall. There is no associated orthopnea, syncope, or presyncope. She does have some swelling to the left upper abdomen,at the left lower chest wall. GASTROINTESTINAL: No abdominal pain, nausea, vomiting, or constipation. She has occasional diarrhea, which is at her baseline. No bright red blood per rectum or melena. Appetite has been normal. She reports worsening swelling of a left upper quadrant mass, which is palpable. This responds to ibuprofen. GENITOURINARY: No dysuria, hematuria, or genitourinary discharge. GYNECOLOGIC: She has a history of endometriosis. She has occasional right lower quadrant/right pelvic pain, which she believes is related to possible ovarian cysts. Her menses are somewhat irregular, but this is stable for her. She occasionally has some associated lower back pain. NEUROLOGIC: She denies any headaches, convulsions, numbness, or tingling. HEMATOLOGIC/LYMPHATIC: She denies any free bleeding or easy bruising. She believes she might have a right postauricular lymph node swollen. ENDOCRINE: She denies any heat or cold intolerance. She reports that she feels somewhat warmer recently. She reports some generalized fatigue. DERM: She denies any rash, lumps, or generalized pruritus. PHYSICAL EXAMINATION VITAL SIGNS: Pulse 87, R 16, BP 118/79, oxygen saturation 96% room air. No temperature as patient was drinking cold water. Currently reports fatigue at 2. Pain is approximately 2 to 3. GENERAL: In general, this is a pleasant, young, somewhat obese 23-year-old woman who appears well developed, well hydrated, and is in no acute distress. HEAD: Atraumatic, normocephalic. EYES: Sclerae anicteric. ENT, MOUTH: Moist mucous membranes. No mucositis. NECK: Supple. There is a very small palpable right postauricular lymph node, approximately 3 to 4 mm. This is firm and rubbery in consistency. No other lymphadenopathy. LUNGS: Clear to auscultation bilaterally. No focal findings. HEART: Regular rate and rhythm. No ectopy. ABDOMEN: Soft, nontender, obese, nondistended. Bowel sounds positive x4. There is some left upper quadrant swelling below the left costal margin over a large tattoo. This is approximately 3 x 3 cm. This is somewhat firm and fixed. Borders are discrete, and area appears more ovoid and somewhat irregular. I do not see symmetrical findings on the contralateral side; however, this may be due to body habitus. There is no pain to palpation of the area. EXTREMITIES: No edema. No clubbing or cyanosis. NEUROLOGIC: Patient is awake, alert, oriented x3. PSYCHIATRIC: Mood and affect appear appropriate. SKIN: No rash, petechiae, or purpura. MUSCULOSKELETAL: Ambulation and gait are steady. LABORATORY CBC and CMP ordered today are currently pending at time of dictation. IMAGING CT chest, abdomen, and pelvis was done without contrast at [facility] on 11/05/2018: 1. Previously noted micro pulmonary nodules have remained stable and are of doubtful significance. 2. Residual thymus in the anterior mediastinum has remained stable. 3. Aortocaval retroperitoneal lymph nodes have remained stable. IMPRESSION AND PLAN This is a pleasant 23-year-old woman with a history of hypertension diagnosed at age 9 who continues to follow up with Cardiology in [place], [place]. Her workup was negative for secondary causes. She has a history of retroperitoneal and mesenteric lymphadenopathy, most probably reactive in nature. Patient was referred for CT-guided biopsy of one of those retroperitoneal lymph nodes, but there was no lymph node significant for biopsy. Repeat CT chest, abdomen, pelvis, and neck did not show any increase in the size of those lymph nodes. Repeat CT chest, abdomen, and pelvis done on November 05, 2018, revealed a stable aortocaval peritoneal lymph node, micro pulmonary nodules, and residual thymus in the anterior mediastinum. Our plan was to continue with watchful waiting and repeat labs and CT scans. Patient was agreeable to this at her last visit. Apparently, she has noticed the area to the left upper abdomen to be larger in size. She recently followed up with her primary care physician about this, and soft tissue ultrasound was performed which was normal. Per primary care physician's note, patient was also requesting followup with surveillance observer, though I do not believe that this was done. As noted above, lung nodules have remained stable and small in size. 1. Retroperitoneal and mesenteric lymphadenopathy, most recently thought to be reactive in nature. Patient does have some palpable swelling noted to the left upper quadrant, and I feel that it is prudent to go ahead and repeat CT scan of the chest, abdomen, and pelvis. I have written orders for that today. 2. I will check CBC and CMP today as part of ongoing workup. 3. Hypertension, currently on treatment. Will continue to follow up with Cardiology per their instructions. 4. History of endometriosis. She will continue to follow up with her primary care physician and/or youth associate for this matter. 5. I have asked the patient to return to clinic in three to four weeks to allow for time for patient to have CT scan authorized and scheduled. 6. She will return to clinic in three to four weeks for followup with Medical Oncology or nurse practitioner if MD not available to review CT scan results. 7. She is not having any constitutional symptoms, though we discussed that she is to notify us for any fevers, chills, night sweats, or unexplained weight loss. Patient and mother both agree. ALDAIR
--- NOTE | 2019-03-31 09:56 | RADIOLOGY IMAGING REPORT ---
FACILITY: [facility] PATIENT NAME: Joy Hunt : 1995 MR: [id number] V: [id number] EXAM DATE: ORDERING PHYSICIAN: GENO OLIVAREZ TECHNOLOGIST: Location: [facility] [place] Patient: Joy Hunt : 1995 Visit/Account:[id number] Date of Sevice: 03/31/2019 EXAMINATION: CT Chest With Contrast CT Abdomen With Contrast CT Pelvis With Contrast 03/31/2019 8:00 AM HISTORY: Mass on left rib/chest wall. Mesenteric lymphadenitis. TECHNIQUE: Spiral scan was obtained through the chest, abdomen and pelvis during injection of nonio vladimir iodinated intravenous contrast. Contrast: 75 mL of IV Isovue 370. One of the following dose optimization techniques was utilized in the performance of this exam: Autom ated exposure control; adjustment of the mA and/or kV according to the patient's size; or use of an i terative reconstruction technique. Specific details can be referenced in the facility's radiology C T exam operational policy. COMPARISON STUDIES: Several priors most recently 11/05/2018. Ultrasound of the left chest wall 12/25 was unremarkable.. FINDINGS: CHEST: Lungs / pleura: There are a few scattered stable tiny benign-appearing micronodules, the majority ple ural-based. Mediastinum / angelina: Stable soft tissue in anterior mediastinum presumably is residual thymus. Heart / pericardium: negative Vessels: negative Musculoskeletal / Body wall: No acute bony finding. No musculoskeletal chest wall mass evident on th e left. Lymph node assessment: Small nonspecific mediastinal lymph nodes. No enlarged adenopathy. Lower neck: negative ABDOMEN AND PELVIS: Liver / biliary: negative Pancreas: negative Spleen: negative Adrenal glands: negative Kidneys / retroperitoneum: negative Pelvic structures: Indwelling IUD in the uterus. Bowel / peritoneum / mesenteries: negative Vessels: negative Musculoskeletal / Body wall: And Lymph node assessment: There is a retroperitoneal lymph nodes are stable. 1.2 x 0.9 cm left periaort ic lymph node (image 107). 1.4 x 0.9 cm precaval lymph node (image 127) multiple additional retroper itoneal lymph nodes and small mesenteric lymph nodes as well without significant change. No inguinal adenopathy. IMPRESSION: 1. Stable mesenteric and retroperitoneal lymph nodes. 2. No acute finding in the chest, abdomen, or pelvis. Report Dictated By: Kali Lovell MD at 03/31/2019 9:35 AM Report E-Signed By: Kali Lovell MD at 03/31/2019 9:52 AM WSN:[id number]
== END 2019-04-26 13:27 | disposition home or self-care (01) ==
LOC: ONC 15:28
PROVIDERS: ATTEND Internal Medicine Hematology
DX: R59.0 Localized enlarged lymph nodes (principal); N80.9 Endometriosis, unspecified; I10 Essential (primary) hypertension; Z79.899 Other long term (current) drug therapy
CPT/HCPCS: 36415; 71260; 74177; 85025; 99212; Q9967; 82040; 82247; 82310; 82374; 82435; 82565; 82947; 84075; 84132; 84155; 84295; 84450; 84460; 84520